=== PATIENT | female | born 1995 | race Caucasian/White ===

== ENCOUNTER 2020-08-24 19:10 | Inpatient (IN) | payer OTHER ==
[2020-08-24] MEDS ORDERED: ZOLPIDEM TARTRATE 5 MG TABLET PO PRN (19:30)
[2020-08-24] MEDS ORDERED: RINGERS SOLUTION,LACTATED 1,000 ML IV PRN (19:30)
[2020-08-24] MEDS ORDERED: RINGERS SOLUTION,LACTATED 1,000 ML IV ONE (19:30)
[2020-08-24] MEDS ORDERED: DINOPROSTONE 10 MG VAGINAL INSERT.SR PV ONE (19:30)
[2020-08-24] MEDS ORDERED: ACETAMINOPHEN 325 MG TABLET PO PRN (19:30)
[2020-08-24] MEDS ORDERED: RINGERS SOLUTION,LACTATED 300 ML IV ONE (19:30)
[2020-08-24] MEDS ORDERED: MAG HYDROX/AL HYDROX/SIMETH SUSP 30 ML UDCUP PO PRN (19:30)
[2020-08-24 20:16] LABS: URINE AMPHETAMINES SCREEN NEGATIVE; URINE BARBITURATES SCREEN NEGATIVE; URINE BENZODIAZEPINES SCREEN NEGATIVE; URINE COCAINE SCREEN NEGATIVE; URINE MARIJUANA (THC) SCREEN NEGATIVE; URINE METHADONE SCREEN NEGATIVE; URINE PHENCYCLIDINE SCREEN NEGATIVE
[2020-08-24 20:17] LABS: ABSOLUTE BASOPHILS # (AUTO) 0.1 10^3/uL (0.0-0.2); ABSOLUTE EOSINOPHILS # (AUTO) 0.2 10^3/uL (0.0-0.6); ABSOLUTE LYMPHOCYTES (AUTO) 2.6 10^3/uL (0.5-4.7); ABSOLUTE MONOCYTES (AUTO) 0.8 10^3/uL (0.1-1.4); ABSOLUTE NEUT (AUTO) 8.3 10^3/uL (1.7-8.2); BASOPHILS % (AUTO) 0.4 % (0-2); EOSINOPHILS % (AUTO) 1.6 % (0-6); HEMATOCRIT 33.2 % (36.0-47.0); HEMOGLOBIN 11.3 g/dL (12.0-15.5); LYMPHOCYTES % (AUTO) 21.8 % (13-45); MEAN CORPUSCULAR HEMOGLOBIN 28.8 pg (27.0-33.4); MEAN CORPUSCULAR VOLUME 85 fl (80-97); PLATELET COUNT 253 10^3/uL (150-450); RED BLOOD COUNT 3.93 10^6/uL (3.72-5.28); RED CELL DISTRIBUTION WIDTH 15.4 % (11.5-14.0); SEGMENTED NEUTROPHILS % (AUTO) 69.2 % (42-78); TOTAL CELLS COUNTED % (AUTO) 100 %
[2020-08-24] MEDS ORDERED: DINOPROSTONE 10 MG VAGINAL INSERT.SR ONE (20:36)
[2020-08-24] MEDS: RINGERS SOLUTION,LACTATED 1,000 ML IV PRN (20:40)
[2020-08-24 22:08] LABS: APPEARANCE,URINE SLIGHTLY-CLOUDY; BILIRUBIN,URINE NEGATIVE (NEGATIVE); COLOR,URINE YELLOW; GLUCOSE, URINE NEGATIVE (NEGATIVE); KETONES,URINE NEGATIVE (NEGATIVE); LEUKOCYTE ESTERASE,URINE SMALL (NEGATIVE); NITRITE,URINE NEGATIVE (NEGATIVE); PROTEIN,URINE NEGATIVE (NEGATIVE); URINE SPECIFIC GRAVITY 1.009; UROBILINOGEN,URINE NEGATIVE mg/dL (<2.0)
--- NOTE | 2020-08-24 23:38 | Admission Physical ---
Datetime Report Generated by CPN: 08/24/2020 23:38 CURRENT ADMISSION Chief Complaint: Other Indication for Induction: Postterm Admit Impression : Term, Intrauterine Admit Plan: Admit to Unit; Initiate Labor Induction Protocol ALLERGIES Medication Allergies: Yes Medication Allergies: Penicillins (08/24/2020) Latex: No Latex Allergies Food Allergies: n/a OBSTETRICAL HISTORY EDC: 08/15/2020 00:00 : 1 Para: 0 Gestational Diabetes: No Rh Sensitization: No Incompetent Cervix: No MAX: No Infertility: No ART Treatment: No Uterine Anomaly: No IUGR: No Hx Previous C/S: No Macrosomia: No Hx Loss/Stillborn: No PIH: No Hx : No Placenta Previa/Abruption: No Depression/PP Depression: No PTL/PROM: No Post Hemorrhage: No Current Procedures: Ultrasound; NST SEE RECORDS Alcohol: No Marijuana : No Cocaine: No Other Illicit Drugs: No Cigarettes: Never Smoker. [id number] MEDICAL HISTORY Diabetes: No Blood Transfusion: No Pulmonary Disease (Asthma, TB): No Breast Disease: No Hypertension: No Make Up Man Surgery: No Heart Disease: No Hosp/Surgery: No Autoimmune Disorder: No Anesthetic Complications: No Kidney Disease: No Abnormal Pap Smear: No Neuro/Epilepsy: No Psychiatric Disorders: No Other Medical Diseases: No Hepatitis/Liver Disease: No Significant Family History: No Varicosities/Phlebitis: No Trauma/Violence : No Thyroid Dysfunction: No INFECTIOUS HISTORY Gonorrhea: No Genital Herpes: No Chlamydia: No Tuberculosis: No Syphilis: No Hepatitis: No HIV/AIDS Exposure: No Rash or Viral Illness: No HPV: No PHYSICAL EXAM General: Normal HEENT: Normal Neurologic: Normal Thyroid: Normal Heart: Normal Lungs: Normal Breast: Deferred Back: Normal Abdomen: Normal Genitourinary Exam: Normal Extremities: Normal DTRs: Normal Pelvic Type: Adequate FETUS A EGA: 41.2 PLANS FOR LABOR AND DELIVERY Labor and Delivery: None Pain Management: Epidural Feeding Preference: Breast Benefit of Breast Feed Discussed: Yes INFORMED CONSENT Signature: with User ID: [email or web address]
[2020-08-24] MEDS ORDERED: ZOLPIDEM TARTRATE 5 MG TABLET ONE (23:43)
[2020-08-25] MEDS ORDERED: MISOPROSTOL 0.2 MG TABLET ONE (04:43)
[2020-08-25] MEDS ORDERED: OXYTOCIN 10 UNIT/ML VIAL ONE (04:43)
[2020-08-25] MEDS ORDERED: OXYTOCIN/0.9 % SODIUM CHLORIDE 30 UNIT/500 ML RTUINJ ONE (04:43)
[2020-08-25] MEDS ORDERED: LIDOCAINE 1% INJ-PF (10 MG/ML) 30 ML SDV ONE (04:43)
[2020-08-25] MEDS ORDERED: EPHEDRINE SULFATE INJ 50 MG/1 ML AMPULE ONE (07:45)
[2020-08-25] MEDS ORDERED: FENTANYL/BUPIVACAINE/NS/PF 300 MCG/150 ML RTUINJ EPI ONE (07:46)
[2020-08-25] MEDS ORDERED: ROPIVACAINE HCL 0.2% INJ/PF (2 MG/ML) 20 ML SDV ONE (07:46)
[2020-08-25] MEDS: RINGERS SOLUTION,LACTATED 1,000 ML IV PRN (09:41)
--- NOTE | 2020-08-25 10:22 | L&D Progress Notes ---
PROGRESS NOTES Datetime Report Generated by CPN: 08/25/2020 10:22 PROGRESS NOTE Impression: Normal Progression of Labor Procedures: Sterile Vag Exam Plan: Continue Present Management; Anticipate Vaginal Delivery Vital Signs : Reviewed; Within Normal Limits Comment: Pt c/o urge to push, VE per RN 9 cm. Position changes encouraged, anticipate LAST VAGINAL EXAM-NURSING Nursing Exam Dilitation: 9.0 Nursing Exam Effacement: 100 Nursing Exam Station: 1 Nursing Exam Contractions: irregular MEMBRANES Membranes: Ruptured Amniotic Fluid Color: Clear FETUS A Monitoring: External US SIGNATURE SIGNATURE: [id number];[id number] Assignment: Kayley Bledsoe MD Signature: with User ID: Sandro : with User ID: Sandro
--- NOTE | 2020-08-25 11:43 | L&D Progress Notes ---
PROGRESS NOTES Datetime Report Generated by CPN: 08/25/2020 11:42 PROGRESS NOTE Impression: Normal Progression of Labor Procedures: Sterile Vag Exam Plan: Continue Present Management; Anticipate Vaginal Delivery Vital Signs : Reviewed Comment: Pt completely dilated, 0 station. OP per VE. Pt has been pushing. Will change pts position to encouraged rotation of the Vtx to OA. Occassional Variable decels, some late in onset. + accels present. Anticipate LAST VAGINAL EXAM-NURSING Nursing Exam Dilitation: 10.0 Nursing Exam Effacement: 100 Nursing Exam Station: 1 Nursing Exam Contractions: irregular MEMBRANES Membranes: Ruptured Amniotic Fluid Color: Clear FETUS A Monitoring: External US SIGNATURE SIGNATURE: [id number];[id number] Assignment: Kayley Bledsoe MD Signature: with User ID: [email or web address] : with User ID: Sandro
[2020-08-25] MEDS ORDERED: PROMETHAZINE HCL 25 MG TABLET PO PRN (13:37)
[2020-08-25] MEDS ORDERED: PSEUDOEPHEDRINE HCL 30 MG TABLET PO PRN (13:37)
[2020-08-25] MEDS ORDERED: DIPHENHYDRAMINE HCL 25 MG CAPSULE PO PRN (13:37)
[2020-08-25] MEDS ORDERED: OXYTOCIN/0.9 % SODIUM CHLORIDE 30 UNIT/500 ML RTUINJ IV PRN (13:37)
[2020-08-25] MEDS ORDERED: DIBUCAINE 1% OINTMENT 28 GM TP PRN (13:37)
[2020-08-25] MEDS ORDERED: DIPH/PERTUSS(ACELL)/TETANUS VAC/PF 0.5 ML SYR (>=10YO) IM PRN (13:37)
[2020-08-25] MEDS ORDERED: PROMETHAZINE HCL 25 MG SUPP.RECT PR PRN (13:37)
[2020-08-25] MEDS ORDERED: ACETAMINOPHEN WITH CODEINE #3 TABLET PO PRN (13:37)
[2020-08-25] MEDS ORDERED: MEASLES,MUMPS&RUBELLA VACC/PF 0.5 ML VIAL SUBCUT PRN (13:37)
[2020-08-25] MEDS ORDERED: BENZOCAINE/MENTHOL AEROSOL SPRAY 56 ML TOP PRN (13:37)
[2020-08-25] MEDS ORDERED: GLYCERIN/WITCH HAZEL LEAF 1 EACH MED..WIPE TP PRN (13:37)
[2020-08-25] MEDS ORDERED: PROMETHAZINE HCL INJ 25 MG/1 ML VIAL IV PRN (13:37)
[2020-08-25] MEDS ORDERED: MAGNESIUM HYDROXIDE SUSP 30 ML UDCUP PO PRN (13:37)
[2020-08-25] MEDS ORDERED: NA PHOS,M-B/NA PHOS,DI-BA (ADULT) 133 ML ENEMA PR PRN (13:37)
[2020-08-25] MEDS ORDERED: IBUPROFEN 800 MG TABLET ONE (14:20)
[2020-08-25] MEDS: IBUPROFEN 800 MG TABLET PO SCH ×2 (14:22→22:14)
--- NOTE | 2020-08-25 15:43 | Birth Certificate Data ---
Cert Data Datetime Report Generated by CPN: 08/25/2020 15:43 CERTIFICATE DATA Delivery Provider: Luz Martinez CNM (08/24/2020 19:11:RADHA Delarosa) 47a. Care: Yes (08/24/2020 19:11:Cara Lackey RN) 47b. Date of First Visit: 01/23/2020 00:00 (08/24/2020 19:11:Cara Lackey RN) 47c. Date of Last Visit: 08/19/2020 00:00 (08/24/2020 19:11:Cara Lackey RN) 47d. Number of Visits: 13 (08/24/2020 19:11:Cara Lackey RN) 48e. Losses: 0 (08/24/2020 19:11:Cara Lackey RN) RISK FACTORS IN THIS 49a. Diabetes: No (08/24/2020 19:11:Cara Lackey RN) 49b. Hypertension: No (08/24/2020 19:11:Cara Lackey RN) 49c. Previous Births: 0 (08/24/2020 19:11:Hellen Guajardo RN) 49d. Stillborns: No (08/24/2020 19:11:Cara Lackey RN) 49d. IUGR: No (08/24/2020 19:11:Cara Lackey RN) 49e. Infertility Treatment: No (08/24/2020 19:11:Cara Lackey RN) 49f. Previous Cesareans: 0 (08/24/2020 19:11:Hellen Guajardo RN) Mother's Height 50b. Height Inches: 62 (08/25/2020 15:26:QS system process) Mother's Weight 51a. Pre- Weight (lbs): 116 (08/24/2020 19:11:Hellen Guajardo RN) 51b. Weight at Delivery (lbs): 152 (08/25/2020 15:26:QS system process) 52. Dt Last Normal Menses Began: 10/30/2019 00:00 (08/24/2020 19:11:Hellen Guajardo RN) Infections Present/Treated 53a. Gonorrhea: No (08/24/2020 19:11:Cara Lackey RN) Results this Hospital Visit : Negative (08/24/2020 19:11:Cara Lackey RN) 53b. Syphilis: No (08/24/2020 19:11:Cara Lackey RN) Results this Hospital Visit: NONREACTIVE (08/24/2020 20:05:QS system process) 53c. Chlamydia: No (08/24/2020 19:11:Cara Lackey RN) Results this Hospital Visit: Negative (08/24/2020 19:11:Cara Lackey RN) 53d. Hepatitis B: No (08/24/2020 19:11:Cara Lackey RN) Results this Hospital Visit: Negative (08/24/2020 19:11:Cara Lackey RN) 53e. Hepatitis C: Negative (08/24/2020 19:11:Cara Lackey RN) 53h. Mother Tested for HBsAG: Yes (08/24/2020 19:11:Cara Lackey RN) 53i. Date Tested: 01/23/2020 00:00 (08/24/2020 19:11:Cara Lackey RN) 53j. Test Result: Negative (08/24/2020 19:11:Cara Lackey, RN) Obstetric Procedures 54a, b, c. Obstetric Procedures: Ultrasound; NST (08/24/2020 19:11:Cara LackeySAPPHIRE) Cigarette Smoking Cigarette Smoking: Never Smoker. [id number] (08/24/2020 19:11:Cara Lackey RN) 55a. 3 Months Before Preg - Ci (08/24/2020 19:11:Hellen Guajardo RN) 55b. 1st Trimester of Preg- Ci (08/24/2020 19:11:Hellen Guajardo RN) 55c. 2nd Trimester of Preg- Ci (08/24/2020 19:11:Hellen Guajardo RN) 55d. 3rd Trimester of Preg- Ci (08/24/2020 19:11:Hellen Guajardo RN) Onset of Labor 56a. PROM >12 Hrs: 6.07 (08/24/2020 19:11:QS system process) 56b. Precipitous Labor <3 Hrs: 6 (08/24/2020 19:11:QS system process) 56c. Prolonged Labor > 20 Hrs: 6 (08/24/2020 19:11:QS system process) 57a. Induction of Labor: Augmentation (08/24/2020 19:11:Hellen Guajardo RN) 57a. Induction of Labor: Cervidil (08/24/2020 20:51:Cara Lackey RN) 57c. Non-Vertex Presentation A: Vertex (08/24/2020 19:11:RADHA Delarosa) 57d. Steroids - Lung Mat: None (08/24/2020 19:11:Hellen Guajardo RN) 57d. Steroids - Lung Mat: Not Applicable (08/24/2020 19:11:Hellen Guajardo RN) 57f. Mat Chorio or Temp >100.4: 99.1 (08/24/2020 19:11:Hellen Guajardo RN) 57g. Moderate/Heavy Meconium: Light Meconium (08/25/2020 06:57:Cara Lackey RN) 57h. Intolerance of Labor: N/A (08/24/2020 19:11:RADHA Delarosa) : N/A (08/24/2020 19:11:Maribell Camp, [facility]) 57i. Epidural/Spinal Anesthesia: Epidural (08/24/2020 19:11:Hellen Drakeustjudah, ) Method of Delivery 58a. Forceps - Unsuccessful A: N/A (08/24/2020 19:11:Maribell Camp, [facility]) 58b. Vacuum - Unsuccessful A: N/A (08/24/2020 19:11:[facility], [facility]) 58c. Presentation at 58c. Presentation at - A : Vertex (08/24/2020 19:11:Maribell Camp, [facility]) 58c. Presentation at - A : N/A (08/24/2020 19:11:Maribell Camp, [facility]) 58c. Presentation at - A : Cephalic (08/24/2020 19:11:Hellen Guajardo, ) Final Route and Method of Del 58d. Baby A Route/Delivery: Vaginal (08/25/2020 13:01:Hellen SAPPHIRE Guajardo) 58e. Trial of Labor Attempted: No (08/24/2020 19:11:Hellen SAPPHIRE Guajardo) 58e. Trial of Labor Attempted A: N/A (08/24/2020 19:11:Hellen SAPPHIRE Guajardo) 58e. Trial of Labor Attempted B: N/A (08/24/2020 19:11:[facility], ) Maternal Morbidity 59b. 3rd or 4th Degree Lacs: Vaginal (08/24/2020 19:11:[facility]) 59b. 3rd or 4th Degree Lacs: repaired 3.[address] and 2.0 sh chromic (08/24/2020 19:11:[facility], ) Birthweight Baby A: 3155 (08/24/2020 19:11:January SAPPHIRE Guajardo) 60a. Pounds : 6 (08/24/2020 19:11:QS system process) 60b. Ounces: 15 (08/24/2020 19:11:QS system process) 61. GA at Delivery Baby A: 41.3 (08/24/2020:11:January SAPPHIRE Guajardo) : Late Term- 41- 41.6 Weeks (08/24/2020 19:11:QS system process) 62a. 5 Minute Baby A: 9 (08/24/2020 19:11:QS system process)
--- NOTE | 2020-08-25 15:45 | Delivery Summary ---
Del Sum A-C Datetime Report Generated by CPN: 08/25/2020 15:44 DELIVERY PERSONNEL DELIVERY PERSONNEL: [id number] Delivery Doctor:: Luz Martinez CNM Nurse Research & Insights Executive Certified:: Luz Martinez CNM Labor and Delivery Nurse:: Hellen Guajardo RNassistant community manager Nurse:: RADHA Delarosa Nursery Nurse:: Kiesha Self RN Waiter/Waitress Informal/SHANA: Rehana Singer CNA II Additional Personnel: : Aiyana Chowdary RN MATERNAL INFORMATION Delivery Anesthesia: Epidural Medications After Delivery: Pitocin 30 Units in 500ml NS/D5W Meds After Delivery Comment: Lidocaine Delivery QBL: 201 Maternal Complications: None Provider Comments: of VFI, delivered LOLA. Crying and placed on pts abdoman in stable condition. Light meconium present. Cord clamped and cut after one minuete. Then cord blood collected. Placenta S/C/I, IV Pitocin infusing. FF w/ decreased lochia. Vaginal repair completed. QBL pending but less than 500 ml. Apgars 8,9. Mother and baby in stable condition, skin to skin. Attending MD is Dr Bledsoe LABOR SUMMARY EDC: 08/15/2020 00:00 No. Babies in Womb: 1 Attempted: No Labor Anesthesia: Epidural LABOR INFORMATION Reason for Induction: Post Dates Onset of Labor: 08/25/2020 06:57 Complete Dilatation: 08/25/2020 10:29 Cervical Ripening Agents: Cervidil Oxytocin: Augmentation Group B Beta Strep: negative Antibiotics # of Doses: n/a Name of Antibiotic Given: n/a Steroids Given: None Reason Steroids Not Administered: Not Applicable MEMBRANES Membranes Rupture Method: Spontaneous Rupture of Membranes: 08/25/2020 06:57 Length of Rupture (hr): 6.07 Amniotic Fluid Color: Light Meconium Amniotic Fluid Amount: Moderate Amniotic Fluid Odor: Normal STAGES OF LABOR Stage 1 hr: 3 Stage 1 min: 32 Stage 2 hr: 2 Stage 2 min: 32 Stage 3 hr: 0 Stage 3 min: 3 Total Time in Labor hr: 6 Total Time in Labor min: 7 VAGINAL DELIVERY Episiotomy: None Laceration #1: Vaginal Laceration Extension #1: Second Degree Other Laceration: repaired 3.[address] and 2.0 sh chromic Laceration Repair: Yes Laceration Repair Note: Second degree vaginal and Right labial laceration repaired in the usual fashion. numbed w/ 1 % lidocaine. Pt tolerated well Sponge Count Correct: N/A Sharps Count Correct: N/A CSECTION DELIVERY Primary Indication: N/A Secondary Indication: N/A CSection Incidence: N/A Labor: N/A Elective: N/A CSection Incision: N/A BABY A INFORMATION Infant Delivery Date/Time: 08/25/2020 13:01 Method of Delivery: Vaginal Nurse Controlled Delivery: No Born in Route : No : N/A Forceps: N/A Vacuum Extraction: N/A Shoulder Dystocia : No PRESENTATION/POSITION BABY A Presentation: Cephalic Cephalic Presentation: Vertex Vertex Position: Left Occipital Anterior Breech Presentation: N/A PLACENTA INFORMATION BABY A Placenta Delivery Time : 08/25/2020 13:04 Placenta Method of Delivery: Spontaneous Placenta Status: Delivered SCORES BABY A Heart Rate 1 min: >100 bpm Resp Effort 1 min: Good Cry Reflex Irritability 1 min: Cough or Sneeze or Pulls Away Muscle Tone 1 min: Active Motion Color 1 min: Blue/Pale Resuscitation Effort 1 min: Tactile Stimulation SCORE 1 MIN: 8 Heart Rate 5 min: >100 bpm Resp Effort 5 min: Good Cry Reflex Irritability 5 min: Cough or Sneeze or Pulls Away Muscle Tone 5 min: Active Motion Color 5 min: Body Liborio Negron Torres, Extremities Blue Resuscitation Effort 5 min: N/A SCORE 5 MIN: 9 Resuscitation Effort 10 min: N/A INFANT INFORMATION BABY A Gestational Age at Delivery: 41.3 Gestational Status: Late Term- 41- 41.6 Weeks Infant Outcome : Liveborn Condition : Stable Infant Sex: Female IDENTIFICATION BABY A Verification Date/Time: 08/25/2020 13:11 ID Band Number: [id number] Mother's Name Verified: Yes Infant RN Verifying : Maribell Camp, RNC Additional Verifying Personnel: Hellen Guajardo RN WEIGHT/LENGTH BABY A Infant Birthweight (gm): 3155 Weight (lb): 6 Infant Weight (oz): 15 Length (in): 20.00 Infant Length (cm): 50.80 CORD INFORMATION BABY A No. Cord Vessels: 3 Nuchal Cord : N/A Cord Blood Taken: Yes-For Eval (Mom's Blood Type - or O+) Suction: None ASSESSMENT BABY A Complications: Multiple Late Decels; Meconium Physical Findings at Delivery: Caput Succedaneum; Molding of the Head Respirations: Appears Normal Skin to Skin: Yes Skin to Skin Time (min): 60 Assembler Ping Pong Table/ALS Called : No Infant Care By: Brock Amanda Transferred To: Remains with Mother BABY B INFORMATION : N/A SIGNATURES Assignment: Kayley Bledsoe MD Signature: with User ID: Sandro : with User ID: Sandro
[2020-08-25] MEDS: DOCUSATE SODIUM 100 MG CAPSULE PO SCH (18:29)
[2020-08-25] MEDS: FERROUS SULFATE 325 MG TABLET PO SCH (18:29)
[2020-08-25] MEDS: FAMOTIDINE 20 MG TABLET PO SCH (22:14)
[2020-08-26] MEDS: IBUPROFEN 800 MG TABLET PO SCH ×3 (05:22→22:53)
[2020-08-26 07:08] LABS: HEMATOCRIT 31.3 % (36.0-47.0); HEMOGLOBIN 10.6 g/dL (12.0-15.5); MEAN CORPUSCULAR HEMOGLOBIN 28.4 pg (27.0-33.4); MEAN CORPUSCULAR HGB CONC 33.8 g/dL (32.0-36.0); MEAN CORPUSCULAR VOLUME 84 fl (80-97); PLATELET COUNT 198 10^3/uL (150-450); RED BLOOD COUNT 3.72 10^6/uL (3.72-5.28); RED CELL DISTRIBUTION WIDTH 15.4 % (11.5-14.0); WHITE BLOOD COUNT 16.8 10^3/uL (4.0-10.5)
[2020-08-26] MEDS ORDERED: PRENATAL VITAMIN W DHA CAPSULE PO SCH (10:00)
[2020-08-26] MEDS: FERROUS SULFATE 325 MG TABLET PO SCH ×2 (10:12→17:34)
[2020-08-26] MEDS: FAMOTIDINE 20 MG TABLET PO SCH ×2 (10:12→22:53)
[2020-08-26] MEDS: SENNOSIDES/DOCUSATE 8.6-50 MG 1 EACH TABLET PO SCH (10:12)
[2020-08-26] MEDS: DOCUSATE SODIUM 100 MG CAPSULE PO SCH ×2 (10:12→17:34)
--- NOTE | 2020-08-26 11:19 | PDOC PROGRESS REPORT ---
Subjective-OB Progress Note for:: 08/26/20 Subjective: reports bleeding slowing, pain controlled with current meds. denies needs Physical Exam (OB) Vital Signs: Temp Pulse Resp BP Pulse Ox 98.0 F 76 16 106/63 98 08/26/20 07:00 08/26/20 07:00 08/26/20 07:00 08/26/20 07:00 08/26/20 07:00 Intake & Output 08/25/20 08/26/20 08/27/20 06:59 06:59 06:59 Intake Total 1000 2000 Balance 1000 1999 Weight 68.6 kg - Maternal Morbidity 59. Maternal Morbidity (serious complications experinced by the mother associated with labor and delivery: None of the above - Abdomen Description: Soft, Round Hernia Present: No Fundal Description: Firm, Midline Fundal Height: u/u - u/2 - Abdominal Distension: No distension Tenderness: Nontender - Extremities Lower extremities: North's sign - neg Calf: Normal, Nontender Objective-Diagnostic Laboratory: 08/26/20 06:20 08/26/20 06:20 WBC 16.8 H RBC 3.72 Hgb 10.6 L Hct 31.3 L MCV 84 MCH 28.4 MCHC 33.8 RDW 15.4 H Plt Count 198 Assessment and Plan(PN) - Time Spent with Patient Time with patient: Less than 15 minutes Medications reviewed and adjusted accordingly: Yes - Disposition Anticipated Discharge Disposition: Home, Self Care Anticipated Discharge Timeframe: within 24 hours
[2020-08-27] MEDS: IBUPROFEN 800 MG TABLET PO SCH (05:29)
[2020-08-27 08:19] VITALS: BP 113/60
[2020-08-27] MEDS: DOCUSATE SODIUM 100 MG CAPSULE PO SCH (10:27)
[2020-08-27] MEDS: FERROUS SULFATE 325 MG TABLET PO SCH (10:27)
[2020-08-27] MEDS: SENNOSIDES/DOCUSATE 8.6-50 MG 1 EACH TABLET PO SCH (10:27)
[2020-08-27] MEDS: FAMOTIDINE 20 MG TABLET PO SCH (10:27)
--- NOTE | 2020-08-27 12:43 | PDOC DISCHARGE SUMMARY ---
Impression - Admit/DC Date/PCP Admission Date/Primary Care Provider: 08/24/20 19:10 Discharge Date: 08/27/20 - Discharge Diagnosis (1) Obstetric vaginal laceration with second degree perineal laceration Is this a current diagnosis for this admission?: Yes (2) Obstetric labial laceration, delivered, current hospitalization Is this a current diagnosis for this admission?: Yes (3) Acute blood loss anemia Is this a current diagnosis for this admission?: Yes (4) Encounter for induction of labor Is this a current diagnosis for this admission?: Yes (5) Vaginal delivery Is this a current diagnosis for this admission?: Yes (6) Post term , 41 weeks Is this a current diagnosis for this admission?: Yes - Assessment Summary: 25yo G1 now P1 ppd 2, stable and ready for discharge. Understands warning s/s and when to rtc/[facility]. - Additional Information Resuscitation Status: Full Code Discharge Diet: As Tolerated, Regular Discharge Activity: Activity As Tolerated, Balance Activity w/Rest, No Lifting Over 10 Pounds, No Lifting/Push/Pulling, Pelvic Rest, No tub bath, Walk Frequently Prescriptions: Ibuprofen [Motrin 800 mg Tablet] 800 mg PO Q8HP PRN #20 tablet PRN Reason: For Pain Scale 1-3 Docusate Sodium [Colace 100 mg Capsule] 100 mg PO BID #60 capsule Ferrous Sulfate [Feosol 325 mg Tablet] 325 mg PO BID #60 tablet Home Medications: Magnesium Oxide [Magnesium] 400 mg PO DAILY 08/24/20 Prenat 115/Iron Fum/Folic/Dss [ 19 Tablet] 1 each PO DAILY 08/24/20 Docusate Sodium [Colace 100 mg Capsule] 100 mg PO BID #60 capsule 08/27/20 Ferrous Sulfate [Feosol 325 mg Tablet] 325 mg PO BID #60 tablet 08/27/20 Ibuprofen [Motrin 800 mg Tablet] 800 mg PO Q8HP PRN #20 tablet 08/27/20 Hospital Course 59. Maternal Morbidity (serious complications experinced by the mother associated with labor and delivery: None of the above Results Laboratory Results: WBC 16.8 10^3/uL (4.0-10.5) H 08/26/20 06:20 RBC 3.72 10^6/uL (3.72-5.28) 08/26/20 06:20 Hgb 10.6 g/dL (12.0-15.5) L 08/26/20 06:20 Hct 31.3 % (36.0-47.0) L 08/26/20 06:20 MCV 84 fl (80-97) 08/26/20 06:20 MCH 28.4 pg (27.0-33.4) 08/26/20 06:20 MCHC 33.8 g/dL (32.0-36.0) 08/26/20 06:20 RDW 15.4 % (11.5-14.0) H 08/26/20 06:20 Plt Count 198 10^3/uL (150-450) 08/26/20 06:20 Lymph % (Auto) 21.8 % (13-45) 08/24/20 20:05 Coffey % (Auto) 7.0 % (3-13) 08/24/20 20:05 Eos % (Auto) 1.6 % (0-6) 08/24/20 20:05 Baso % (Auto) 0.4 % (0-2) 08/24/20 20:05 Absolute Neuts (auto) 8.3 10^3/uL (1.7-8.2) H 08/24/20 20:05 Absolute Lymphs (auto) 2.6 10^3/uL (0.5-4.7) 08/24/20 20:05 Absolute Monos (auto) 0.8 10^3/uL (0.1-1.4) 08/24/20 20:05 Absolute Eos (auto) 0.2 10^3/uL (0.0-0.6) 08/24/20 20:05 Absolute Basos (auto) 0.1 10^3/uL (0.0-0.2) 08/24/20 20:05 Seg Neutrophils % 69.2 % (42-78) 08/24/20 20:05 Urine Color YELLOW 08/24/20 19:38 Urine Appearance SLIGHTLY-CLOUDY 08/24/20 19:38 Urine pH 7.0 (5.0-9.0) 08/24/20 19:38 Ur Specific Latta 1.009 08/24/20 19:38 Urine Protein NEGATIVE mg/dL (NEGATIVE) 08/24/20 19: Urine Glucose (UA) NEGATIVE mg/dL (NEGATIVE) 08/24/20 19:38 Urine Ketones NEGATIVE mg/dL (NEGATIVE) 08/24/20 19:38 Urine Blood MODERATE (NEGATIVE) H 08/24/20 19:38 Urine Nitrite NEGATIVE (NEGATIVE) 08/24/20 19:38 Urine Bilirubin NEGATIVE (NEGATIVE) 08/24/20 19:38 Urine Urobilinogen NEGATIVE mg/dL (<2.0) 08/24/20 19:38 Ur Leukocyte Esterase SMALL (NEGATIVE) H 08/24/20 19:38 Urine Ascorbic Acid NEGATIVE (NEGATIVE) 08/24/20 19:38 Urine Opiates Screen NEGATIVE 08/24/20 19:38 Urine Methadone Screen NEGATIVE 08/24/20 19:38 Ur Barbiturates Screen NEGATIVE 08/24/20 19:38 Ur Phencyclidine Scrn NEGATIVE 08/24/20 19:38 Ur Amphetamines Screen NEGATIVE 08/24/20 19:38 U Benzodiazepines Scrn NEGATIVE 08/24/20 19:38 Urine Cocaine Screen NEGATIVE 08/24/20 19:38 U Marijuana (THC) Screen NEGATIVE 08/24/20 19:38 RPR NONREACTIVE (NONREACTIVE) 08/24/20 20:05 Blood Type A POSITIVE 08/24/20 20:05 Antibody Screen NEGATIVE 08/24/20 20:05
== END 2020-08-27 14:30 | disposition home or self-care (01) | DRG 806 ==
LOC: LR 19:10 → 2S 08-25 15:25
PROVIDERS: ADMIT Obstetrics & Gynecology Gynecology; ATTEND Obstetrics & Gynecology Gynecology
PROC: 10E0XZZ Delivery of Products of Conception, External Approach (ICD-10-PCS; principal; 2020-08-25)
PROC: 0KQM0ZZ Repair Perineum Muscle, Open Approach (ICD-10-PCS; 2020-08-25)
PROC: 0UQMXZZ Repair Vulva, External Approach (ICD-10-PCS; 2020-08-25)
DX: O48.0 Post-term pregnancy (principal); O71.4 Obstetric high vaginal laceration alone; Z37.0 Single live birth; D62 Acute posthemorrhagic anemia; O70.0 First degree perineal laceration during delivery; O99.02 Anemia complicating childbirth; O36.8330 Maternal care for abnormalities of the fetal heart rate or rhythm, third trimester, not applicable or unspecified; O77.0 Labor and delivery complicated by meconium in amniotic fluid; Z3A.41 41 weeks gestation of pregnancy; Z88.0 Allergy status to penicillin
CPT/HCPCS: 1967; 36415; 80307; 81005; 85025; 85027; 86592; 86850; 86900; 86901; 94760; J2590; J2795; J3010; J3490